=== PATIENT | male | born 1980 | race Caucasian/White ===

== ENCOUNTER 2023-06-28 22:45 | Emergency (ER) | payer OTHER, SELFPAY ==
[2023-06-28 22:47] VITALS: BP 127/82
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
== END 2023-06-29 00:16 | disposition home or self-care (01) ==
LOC: EMR 22:45
PROVIDERS: EMERGENCY PHYSICIAN Emergency Medicine; FAMILY PHYSICIAN Family Medicine
DX: M62.838 Other muscle spasm (principal); R21 Rash and other nonspecific skin eruption; F41.8 Other specified anxiety disorders; K76.82 Hepatic encephalopathy; K74.60 Unspecified cirrhosis of liver; F17.200 Nicotine dependence, unspecified, uncomplicated
CPT/HCPCS: 99282